=== PATIENT | female | born 1955 | race Caucasian/White ===

== ENCOUNTER 2020-09-24 19:26 | Inpatient (IN) | payer BC, MEDICARE, OTHER ==
[2020-09-24] MEDS: Sodium Chloride 0.9% 10 ML Syringe FLUSH PRN (19:50)
--- NOTE | 2020-09-24 19:53 | EDM.PDOC ---
ED HPI GENERAL MEDICAL PROBLEM - General Time Seen by Provider: 09/24/20 19:45 Source of Information: Reports: Patient History Limitations: Reports: No Limitations - History of Present Illness INITIAL COMMENTS - FREE TEXT/NARRATIVE: 65-year-old female with history of COPD who was recently on prednisone for COPD exacerbation and was improving until 2 days ago when she began to have increasing shortness of breath. She has a chronic cough that is really unchanged and she is producing thick mucus which is not much change than previous. Today her breathing seemed to be quite a bit worse and her O2 saturations have dropped to the 88% range. The patient is not on oxygen but does have an O2 sat monitor that she uses at home. She reports that she is usually 90-91% on room air home. She also reports that yesterday that she began to have pain in her right anterior and lateral chest that was a sharp pain that was worse with breathing and with movement. It went away yesterday but came back today and has progressively worsened today. She reports her pain is a 10/10. She feels somewhat better on oxygen and her O2 saturations were 87 to 88% on room air and are now 92-95% on 2 L/m via nasal cannula. She has had no fevers or chills. She has had generalized malaise. No sweats. No nausea or vomiting. She has been able to take liquids well. Not much of an appetite. No hemoptysis. No abdominal pain. No leg swelling. There are no other associated signs or symptoms. There are no other modifying factors. Onset: Other (2 days ago) Duration: Getting Worse Location: Reports: Chest (Right-sided chest) Quality: Reports: Sharp Severity: Severe Improves with: Reports: Rest Worsens with: Reports: Breathing, Other (Palpation), Movement Context: Reports: Other Associated Symptoms: Reports: Chest Pain, Cough, Loss of Appetite, Malaise, Shortness of Breath Treatments [employer]: Reports: Other (see below) (Usual medications.) R lateral chest/rib Pain Score (Numeric/FACES): 10 - Related Data Allergies Allergy/AdvReac Type Severity Reaction Status Date / Time No Known Allergies Allergy Verified 09/24/20 19:54 Home Meds: Home Meds Albuterol Sulfate [Albuterol Sulfate Hfa] 18 gm IH Q4H PRN 09/24/20 [History] Albuterol [Proventil Neb Soln] 2.5 mg .XX Q4H PRN 09/24/20 [History] Aspirin [Aspirin EC] 325 mg PO DAILY 09/24/20 [History] Fluticasone/Umeclidin/Vilanter [Trelegy Ellipta 100-62.5-25] 1 puff DAILY 09/24/20 [History] Multivitamin [Daily Multiple Vitamin] 1 each PO DAILY 09/24/20 [History] Simvastatin [Zocor] 80 mg PO BEDTIME 09/24/20 [History] Venlafaxine HCl [Venlafaxine ER] 150 mg DAILY 09/24/20 [History] amLODIPine Besylate [Norvasc] 10 mg PO DAILY 09/24/20 [History] Past Medical History Cardiovascular History: Reports: Hypertension Respiratory History: Reports: COPD Psychiatric History: Reports: Anxiety, Depression - Past Surgical History GI Surgical History: Reports: Appendectomy Female Surgical History: Reports: Section Social & Family History - Tobacco Use Tobacco Use Status *Q: Current Every Day Tobacco User Tobacco Use Comment: Smokes 1/2-3/4 of a pack per day. Long-standing smoker. - Alcohol Use Alcohol Use History: No - Living Situation & Occupation Occupation: Retired ED ROS GENERAL - Review of Systems Review Of Systems: See Below Constitutional: Reports: Malaise, Fatigue HEENT: Reports: No Symptoms Respiratory: Reports: Shortness of Breath, Wheezing, Pleuritic Chest Pain, Cough, Sputum Cardiovascular: Reports: Chest Pain, Dyspnea on Exertion Endocrine: Reports: No Symptoms GI/Abdominal: Reports: No Symptoms : Reports: No Symptoms Musculoskeletal: Reports: No Symptoms Skin: Reports: No Symptoms Neurological: Reports: No Symptoms Hematologic/Lymphatic: Reports: No Symptoms Immunologic: Reports: No Symptoms ED EXAM, GENERAL - Physical Exam Exam: See Below Exam Limited By: No Limitations General Appearance: Alert, WD/WN, Moderate Distress (Appears in acute pain. There is increased work of breathing.) Eye Exam: Bilateral Eye: EOMI, Normal Inspection Ears: Normal External Exam, Hearing Grossly Normal Ear Exam: Bilateral Ear: Auricle Normal Nose: Normal Inspection, Normal Mucosa, No Blood Throat/Mouth: Normal Inspection, Normal Lips, Normal Oropharynx, Normal Voice, No Airway Compromise Head: Atraumatic, Normocephalic Neck: Normal Inspection, Supple, Non-Tender, Full Range of Motion Respiratory/Chest: Respiratory Distress, Decreased Breath Sounds (Bilaterally. There is poor air movement.), Wheezing, Accessory Muscle Use, Other (Tender to palpation along her right her lateral lower rib) Cardiovascular: Normal Peripheral Pulses, No Edema, No Gallop, No Murmur, Tachycardia Peripheral Pulses: 2+: Radial (L), Radial (R) GI/Abdominal: Normal Bowel Sounds, Soft, Non-Tender, No Mass Back Exam: Full Range of Motion, Other (Kyphotic) Extremities: Normal Inspection, Normal Range of Motion, Non-Tender, No Pedal Edema, Normal Capillary Refill Neurological: Alert, Oriented, CN II-XII Intact, Normal Cognition, No Motor/Sensory Deficits Psychiatric: Normal Affect Skin Exam: Warm, Dry, Intact, Normal Color, No Rash #1 Interpretation EKG Date: 09/24/20 Time: 19:36 Rhythm: Other (Sinus tachycardia) Rate (Beats/Min): 106 [place]: Normal P-Wave: Enlarged (Biatrial enlargement) QRS: Normal ST-T: Other (Nonspecific ST-T changes) QT: Normal Comparison: NA - No Prior EKG Course - Vital Signs Last Recorded V/S: Last Vital Signs Temp 36.7 C 09/24/20 19:26 Pulse 107 H 09/24/20 20:30 Resp 24 H 09/24/20 20:30 BP 115/68 09/24/20 20:30 Pulse Ox 92 L 09/24/20 20:30 - Orders/Labs/Meds Orders: Active Orders 24 hr Category Date Time Status Admission Status [Patient Status] [ADT] Routine ADT 09/24/20 23:35 Active Cardiac Monitoring [RC] .As Directed Care 09/24/20 23:20 Ordered EKG Documentation Completion [RC] ASDIRECTED Care 09/24/20 19:47 Active EKG Documentation Completion [RC] ASDIRECTED Care 09/24/20 23:34 Active Height and Weight [RC] DAILY Care 09/24/20 23:26 Active Intake and Output [RC] QSHIFT Care 09/24/20 23:26 Active Oxygen Therapy Adult [Oxygen Therapy, ED] [RC] Care 09/24/20 19:30 Active ASDIRECTED Oxygen Therapy [RC] PRN Care 09/24/20 23:26 Active RT Aerosol Therapy [RC] ASDIRECTED Care 09/24/20 21:02 Active RT Aerosol Therapy [RC] ASDIRECTED Care 09/24/20 23:30 Active Up With Assistance [RC] ASDIRECTED Care 09/24/20 23:26 Active VTE/DVT Education [RC] Per Unit Routine Care 09/24/20 23:26 Active Vital Signs [RC] Q4H Care 09/24/20 23:26 Active Regular Diet [DIET] Diet 09/24/20 Dinner Active Ang Chest [CT] Stat Exams 09/24/20 21:03 Taken Chest 1V Frontal [CR] Stat Exams 09/24/20 19:46 Taken BASIC METABOLIC PANEL,BMP [CHEM] AM Lab 09/25/20 05:11 Ordered CBC WITH AUTO DIFF [HEME] AM Lab 09/25/20 05:11 Ordered CULTURE BLOOD [BC] Urgent Lab 09/24/20 19:40 Received CULTURE BLOOD [BC] Urgent Lab 09/24/20 20:30 Ordered TROPONIN I [CHEM] AM Lab 09/25/20 05:11 Ordered Acetaminophen [TylenoL] Med 09/24/20 23:26 Ordered 650 mg PO Q4H PRN Albuterol/Ipratropium [DuoNeb 3.0-0.5 MG/3 ML] Med 09/25/20 07:00 Ordered 3 ml NEB QIDRT Azithromycin [Zithromax] 500 mg Med 09/25/20 23:00 Ordered Sodium Chloride 0.9% [Normal Saline (AdvBag)] 250 ml IV Q24H Enoxaparin [Lovenox] Med 09/24/20 23:30 Ordered 30 mg SUBCUT Q24H HYDROmorphone [Dilaudid] Med 09/24/20 23:26 Ordered 0.5 mg IVPUSH Q2H PRN Ondansetron [Zofran] Med 09/24/20 23:26 Ordered 4 mg IV Q6H PRN Pantoprazole [ProTONIX IV] Med 09/24/20 23:30 Ordered 40 mg IVPUSH Q12H Sodium Chloride 0.9% [Normal Saline] 1,000 ml Med 09/24/20 20:30 Active IV ASDIRECTED Sodium Chloride 0.9% [Saline Flush] Med 09/24/20 19:46 Active 10 ml FLUSH ASDIRECTED PRN cefTRIAXone [Rocephin] Med 09/25/20 22:30 Ordered 1 gm IVPUSH Q24H methylPREDNISolone Sod Succ [Solu-MEDROL] Med 09/25/20 08:00 Ordered 40 mg IVPUSH Q12H Blood Culture x2 Reflex Set [OM.PC] Urgent Oth 09/24/20 20:29 Ordered Peripheral IV Insertion Adult [OM.PC] Routine Oth 09/24/20 19:46 Ordered Resuscitation Status Routine Resus Stat 09/24/20 23:26 Ordered EKG 12 Lead [EK] Routine Ther 09/25/20 08:00 Ordered EKG 12 Lead [EK] Routine Ther 09/24/20 19:46 Ordered Medication Orders Acetaminophen (Tylenol) 650 mg PO Q4H PRN PRN Reason: Pain (Mild 1-3)/fever Albuterol/Ipratropium (Duoneb 3.0-0.5 Mg/3 Ml) 3 ml NEB QIDRT BUSHRA Ceftriaxone Sodium (Rocephin) 1 gm IVPUSH Q24H [facility] Enoxaparin Sodium (Lovenox) 30 mg SUBCUT Q24H B[facility]RA Hydromorphone HCl (Dilaudid) 0.5 mg IVPUSH Q2H PRN PRN Reason: Pain (severe 7-10) Sodium Chloride (Normal Saline) 1,000 mls @ 75 mls/hr IV ASDIRECTED BUSHRA Last Admin: 09/24/20 20:30 Dose: 125 mls/hr Documented by: [email or web address] Azithromycin 500 mg/ Sodium (Chloride) 250 mls @ 250 mls/hr IV Q24H B[facility]RA Methylprednisolone Sodium Succinate (Solu-Medrol) 40 mg IVPUSH Q12H [facility] Ondansetron HCl (Zofran) 4 mg IV Q6H PRN PRN Reason: Nausea/Vomiting Pantoprazole Sodium (Protonix Iv) 40 mg IVPUSH Q12H [facility] Sodium Chloride (Saline Flush) 10 ml FLUSH ASDIRECTED PRN PRN Reason: Keep Vein Open Last Admin: 09/24/20 19:50 Dose: 10 ml Documented by: [email or web address] Labs: Laboratory Tests 09/24/20 09/24/20 09/24/20 Range/Units 19:40 19:40 19:40 WBC 29.8 H (3.0-10.3) x10-3/uL RBC 5.21 H (3.60-5.20) x10(6)uL Hgb 15.4 (11.4-15.5) g/dL Hct 48.2 (34.2-48.2) % MCV 92.5 (76.7-100.5) fL MCH 29.5 (23.9-33.9) pg MCHC 31.9 (31.9-34.8) g/dL RDW 13.8 (12.3-16.5) % Plt Count 476 (151-488) x10(3)uL MPV 7.8 (7.1-12.4) fL Add Manual Diff Yes Neutrophils % (Manual) 89 H (46-82) % Band Neutrophils % 3 (0-6) % Lymphocytes % (Manual) 6 L (13-37) % Monocytes % (Manual) 2 L (4-12) % PT 10.2 (9.0-11.1) sec INR 0.94 L (1.00-1.24) APTT 26.1 (24.4-33.2) SECONDS D-Dimer, Quantitative (0.0-0.59) mg/LFEU POC VBG pH (7.32-7.43) pH Units POC VBG pCO2 (41-51) mmHg POC VBG HCO3 (21-29) mmol/L VBG Base Excess (-2-3) mmol/L O2 Delivery Device Sodium 140 (135-145) mmol/L Potassium 4.0 (3.5-5.3) mmol/L Chloride 102 (100-110) mmol/L Carbon Dioxide 25 (21-32) mmol/L BUN 14 (7-18) mg/dL Creatinine 0.9 (0.55-1.02) mg/dL Est Cr Clr Drug Dosing 48.43 mL/min Estimated GFR (MDRD) > 60 (>60) BUN/Creatinine Ratio 15.6 (9-20) Glucose 165 H (80-116) mg/dL Lactic Acid (0.4-2.0) mmol/L Calcium 9.3 (8.6-10.2) mg/dL Total Bilirubin 0.4 (0.1-1.3) mg/dL AST 45 H (5-25) IU/L ALT 69 H (12-36) U/L Alkaline Phosphatase 190 H (56-112) IU/L Troponin I (4.0-60.3) pg/mL C-Reactive Protein (0.5-0.9) mg/dL NT-Pro-B Natriuret Pep (<=125) pg/mL Total Protein 7.2 (6.0-8.0) g/dL Albumin 3.0 L (3.2-4.6) g/dL Globulin 4.2 g/dL Albumin/Globulin Ratio 0.7 SARS-CoV-2 RNA (KIKE) (NEGATIVE) 09/24/20 09/24/20 09/24/20 Range/Units 19:40 19:40 19:40 WBC (3.0-10.3) x10-3/uL RBC (3.60-5.20) x10(6)uL Hgb (11.4-15.5) g/dL Hct (34.2-48.2) % MCV (76.7-100.5) fL MCH (23.9-33.9) pg MCHC (31.9-34.8) g/dL RDW (12.3-16.5) % Plt Count (151-488) x10(3)uL MPV (7.1-12.4) fL Add Manual Diff Neutrophils % (Manual) (46-82) % Band Neutrophils % (0-6) % Lymphocytes % (Manual) (13-37) % Monocytes % (Manual) (4-12) % PT (9.0-11.1) sec INR (1.00-1.24) APTT (24.4-33.2) SECONDS D-Dimer, Quantitative (0.0-0.59) mg/LFEU POC VBG pH 7.43 (7.32-7.43) pH Units POC VBG pCO2 39 L (41-51) mmHg POC VBG HCO3 26 (21-29) mmol/L VBG Base Excess 2 (-2-3) mmol/L O2 Delivery Device Nasal cannula Sodium (135-145) mmol/L Potassium (3.5-5.3) mmol/L Chloride (100-110) mmol/L Carbon Dioxide (21-32) mmol/L BUN (7-18) mg/dL Creatinine (0.55-1.02) mg/dL Est Cr Clr Drug Dosing mL/min Estimated GFR (MDRD) (>60) BUN/Creatinine Ratio (9-20) Glucose (80-116) mg/dL Lactic Acid (0.4-2.0) mmol/L Calcium (8.6-10.2) mg/dL Total Bilirubin (0.1-1.3) mg/dL AST (5-25) IU/L ALT (12-36) U/L Alkaline Phosphatase (56-112) IU/L Troponin I 5.3 (4.0-60.3) pg/mL C-Reactive Protein 17.1 H* (0.5-0.9) mg/dL NT-Pro-B Natriuret Pep 143 H (<=125) pg/mL Total Protein (6.0-8.0) g/dL Albumin (3.2-4.6) g/dL Globulin g/dL Albumin/Globulin Ratio SARS-CoV-2 RNA (KIKE) (NEGATIVE) 09/24/20 09/24/20 09/24/20 Range/Units 19:40 19:40 19:45 WBC (3.0-10.3) x10-3/uL RBC (3.60-5.20) x10(6)uL Hgb (11.4-15.5) g/dL Hct (34.2-48.2) % MCV (76.7-100.5) fL MCH (23.9-33.9) pg MCHC (31.9-34.8) g/dL RDW (12.3-16.5) % Plt Count (151-488) x10(3)uL MPV (7.1-12.4) fL Add Manual Diff Neutrophils % (Manual) (46-82) % Band Neutrophils % (0-6) % Lymphocytes % (Manual) (13-37) % Monocytes % (Manual) (4-12) % PT (9.0-11.1) sec INR (1.00-1.24) APTT (24.4-33.2) SECONDS D-Dimer, Quantitative 0.77 H (0.0-0.59) mg/LFEU POC VBG pH (7.32-7.43) pH Units POC VBG pCO2 (41-51) mmHg POC VBG HCO3 (21-29) mmol/L VBG Base Excess (-2-3) mmol/L O2 Delivery Device Sodium (135-145) mmol/L Potassium (3.5-5.3) mmol/L Chloride (100-110) mmol/L Carbon Dioxide (21-32) mmol/L BUN (7-18) mg/dL Creatinine (0.55-1.02) mg/dL Est Cr Clr Drug Dosing mL/min Estimated GFR (MDRD) (>60) BUN/Creatinine Ratio (9-20) Glucose (80-116) mg/dL Lactic Acid 1.7 (0.4-2.0) mmol/L Calcium (8.6-10.2) mg/dL Total Bilirubin (0.1-1.3) mg/dL AST (5-25) IU/L ALT (12-36) U/L Alkaline Phosphatase (56-112) IU/L Troponin I (4.0-60.3) pg/mL C-Reactive Protein (0.5-0.9) mg/dL NT-Pro-B Natriuret Pep (<=125) pg/mL Total Protein (6.0-8.0) g/dL Albumin (3.2-4.6) g/dL Globulin g/dL Albumin/Globulin Ratio SARS-CoV-2 RNA (KIKE) Negative (NEGATIVE) Meds: Medications Generic Name Dose Route Start Last Admin Trade Name Freq PRN Reason Stop Dose Admin Acetaminophen 650 mg 09/24/20 23:26 Tylenol PO Q4H PRN Pain (Mild 1-3)/fever Albuterol/Ipratropium 3 ml 09/25/20 07:00 Duoneb 3.0-0.5 Mg/3 Ml NEB QIDRT BUSHRA Ceftriaxone Sodium 1 gm 09/25/20 22:30 Rocephin IVPUSH Q24H BUSH[facility] Enoxaparin Sodium 30 mg 09/24/20 23:30 Lovenox SUBCUT Q24H B[facility]RA Hydromorphone HCl 0.5 mg 09/24/20 23:26 Dilaudid IVPUSH Q2H PRN Pain (severe 7-10) Sodium Chloride 1,000 mls @ 75 mls/hr 09/24/20 20:30 09/24/20 20:30 Normal Saline IV 125 mls/hr ASDIRECTED BUSHRA Administration Azithromycin 500 mg/ Sodium 250 mls @ 250 mls/hr 09/25/20 23:00 Chloride IV Q24H BUSHRA Methylprednisolone Sodium Succinate 40 mg 09/25/20 08:00 Solu-Medrol IVPUSH Q12H [facility] Ondansetron HCl 4 mg 09/24/20 23:26 Zofran IV Q6H PRN Nausea/Vomiting Pantoprazole Sodium 40 mg 09/24/20 23:30 Protonix Iv IVPUSH Q12H [facility] Sodium Chloride 10 ml 09/24/20 19:46 09/24/20 19:50 Saline Flush FLUSH 10 ml ASDIRECTED PRN Administration Keep Vein Open Discontinued Medications Generic Name Dose Route Start Last Admin Trade Name Freq PRN Reason Stop Dose Admin Albuterol/Ipratropium 3 ml 09/24/20 21:02 09/24/20 21:23 Duoneb 3.0-0.5 Mg/3 Ml NEB 09/24/20 21:03 3 ml ONETIME ONE Administration Ceftriaxone Sodium 1 gm 09/24/20 22:30 09/24/20 23:00 Rocephin IVPUSH 09/24/20 22:31 1 gm ONETIME ONE Administration Hydromorphone HCl 0.5 mg 09/24/20 20:17 09/24/20 20:29 Dilaudid IVPUSH 09/24/20 20:18 0.5 mg ONETIME ONE Administration Azithromycin 500 mg/ Sodium 250 mls @ 250 mls/hr 09/24/20 22:30 09/24/20 23:04 Chloride IV 09/24/20 23:29 250 mls/hr ONETIME ONE Administration Iopamidol 100 ml 09/24/20 21:17 09/24/20 22:08 Isovue-370 (76%) IV 09/24/20 21:18 75 ml . DIRECTED ONE Administration Methylprednisolone Sodium Succinate 125 mg 09/24/20 20:17 09/24/20 20:33 Solu-Medrol IVPUSH 09/24/20 20:18 125 mg ONETIME ONE Administration Ondansetron HCl 4 mg 09/24/20 20:17 09/24/20 20:27 Zofran IVPUSH 09/24/20 20:18 4 mg ONETIME ONE Administration - Radiology Interpretation Free Text/Narrative:: Portable chest x-ray showed bilateral lower lobe infiltrates with right being greater than left. CTA of chest showed evidence of pulmonary emboli but there were bilateral lower lobe infiltrates with right being greater than left. This was per the radiologist. - Re-Assessments/Exams Free Text/Narrative Re-Assessment/Exam: 09/24/20 20:55: The patient feels much better after the IV pain medication. Her Covid test was negative and she will be given a DuoNeb. She is still requiring supplemental oxygen at 2+ liters per minute via nasal cannula to keep her O2 saturations greater than 92%. A venous blood gas showed normal pH and normal PCO2. Her d-dimer is elevated. She will need a CTA of her chest to rule in or out PE. I did discuss with the patient that she will need admission for respiratory failure. I discussed the findings of the tests thus far and she would be agreeable to admission to our facility. The patient's EKG shows no acute injury pattern and her troponin was normal. I we will await the results of the CTA of her chest. We will continue close monitoring. 09/24/20 23:15: The CTA of her chest showed no evidence of pulmonary embolism There were bilateral pneumonias as were seen on the chest x-ray. She is requiring 2-1/2 L/m of oxygen still. I have ordered Rocephin 1 g IV and Zithromax 500 mg IV. Her breathing is much better after the DuoNeb. I discussed all these findings with the patient and will be admitted. This plan of care will require at least 2 midnight [address] stay. I will place admission orders. Care the patient will be transferred to Dr. Moreno at 0700 hrs. on 09/25/2020. Evaluation is agreeable with the plan for admission. I did discuss precautions CODE STATUS with the patient and she requests to be a FULL CODE. The patient is on telemetry and I also ordered a repeat troponin and a repeat EKG to be performed in the morning. Departure - Departure Time of Disposition: 23:30 Disposition: Admitted As Inpatient 65 Condition: Fair Clinical Impression: COPD exacerbation Respiratory failure with hypoxia Qualifiers: Chronicity: acute Qualified Code(s): J96.01 - Acute respiratory failure with hypoxia Bilateral pneumonia Qualifiers: Pneumonia type: due to unspecified organism Lung location: lower lobe of lung Qualified Code(s): J18.9 - Pneumonia, unspecified organism - Discharge Information Referrals: Ry Nava MD [Primary Care Provider] - Sepsis Event Note (ED) - Focused Exam Vital Signs: Vital Signs Temp Pulse Resp BP Pulse Ox Pulse Ox 09/24/20 20:30 107 H 24 H 115/68 92 L 09/24/20 20:00 108 H 24 H 139/95 H 92 L 09/24/20 19:48 104 H 26 H 124/78 93 L 09/24/20 19:30 88 L 09/24/20 19:26 36.7 C 122 H 28 H 153/74 H 88 L - My Orders Last 24 Hours: My Active Orders 09/24/20 Dinner Regular Diet [DIET] 09/24/20 19:30 Oxygen Therapy Adult [Oxygen Therapy, ED] [RC] ASDIRECTED 09/24/20 19:40 CULTURE BLOOD [BC] Urgent 09/24/20 19:46 Chest 1V Frontal [CR] Stat Sodium Chloride 0.9% [Saline Flush] 10 ml FLUSH ASDIRECTED PRN Peripheral IV Insertion Adult [OM.PC] Routine EKG 12 Lead [EK] Routine 09/24/20 19:47 EKG Documentation Completion [RC] ASDIRECTED 09/24/20 20:29 Blood Culture x2 Reflex Set [OM.PC] Urgent 09/24/20 20:30 CULTURE BLOOD [BC] Urgent Sodium Chloride 0.9% [Normal Saline] 1,000 ml IV ASDIRECTED 09/24/20 21:02 RT Aerosol Therapy [RC] ASDIRECTED 09/24/20 21:03 Ang Chest [CT] Stat 09/24/20 23:20 Cardiac Monitoring [RC] .As Directed 09/24/20 23:26 Height and Weight [RC] DAILY Intake and Output [RC] QSHIFT Oxygen Therapy [RC] PRN Up With Assistance [RC] ASDIRECTED VTE/DVT Education [RC] Per Unit Routine Vital Signs [RC] Q4H Acetaminophen [TylenoL] 650 mg PO Q4H PRN HYDROmorphone [Dilaudid] 0.5 mg IVPUSH Q2H PRN Ondansetron [Zofran] 4 mg IV Q6H PRN Resuscitation Status Routine 09/24/20 23:30 RT Aerosol Therapy [RC] ASDIRECTED Enoxaparin [Lovenox] 30 mg SUBCUT Q24H Pantoprazole [ProTONIX IV] 40 mg IVPUSH Q12H 09/24/20 23:34 EKG Documentation Completion [RC] ASDIRECTED 09/24/20 23:35 Admission Status [Patient Status] [ADT] Routine 09/25/20 05:11 BASIC METABOLIC PANEL,BMP [CHEM] AM CBC WITH AUTO DIFF [HEME] AM TROPONIN I [CHEM] AM 09/25/20 07:00 Albuterol/Ipratropium [DuoNeb 3.0-0.5 MG/3 ML] 3 ml NEB QIDRT 09/25/20 08:00 methylPREDNISolone Sod Succ [Solu-MEDROL] 40 mg IVPUSH Q12H EKG 12 Lead [EK] Routine 09/25/20 22:30 cefTRIAXone [Rocephin] 1 gm IVPUSH Q24H 09/25/20 23:00 Azithromycin [Zithromax] 500 mg Sodium Chloride 0.9% [Normal Saline (AdvBag)] 250 ml IV Q24H - Assessment/Plan Last 24 Hours: My Active Orders 09/24/20 Dinner Regular Diet [DIET] 09/24/20 19:30 Oxygen Therapy Adult [Oxygen Therapy, ED] [RC] ASDIRECTED 09/24/20 19:40 CULTURE BLOOD [BC] Urgent 09/24/20 19:46 Chest 1V Frontal [CR] Stat Sodium Chloride 0.9% [Saline Flush] 10 ml FLUSH ASDIRECTED PRN Peripheral IV Insertion Adult [OM.PC] Routine EKG 12 Lead [EK] Routine 09/24/20 19:47 EKG Documentation Completion [RC] ASDIRECTED 09/24/20 20:29 Blood Culture x2 Reflex Set [OM.PC] Urgent 09/24/20 20:30 CULTURE BLOOD [BC] Urgent Sodium Chloride 0.9% [Normal Saline] 1,000 ml IV ASDIRECTED 09/24/20 21:02 RT Aerosol Therapy [RC] ASDIRECTED 09/24/20 21:03 Ang Chest [CT] Stat 09/24/20 23:20 Cardiac Monitoring [RC] .As Directed 09/24/20 23:26 Height and Weight [RC] DAILY Intake and Output [RC] QSHIFT Oxygen Therapy [RC] PRN Up With Assistance [RC] ASDIRECTED VTE/DVT Education [RC] Per Unit Routine Vital Signs [RC] Q4H Acetaminophen [TylenoL] 650 mg PO Q4H PRN HYDROmorphone [Dilaudid] 0.5 mg IVPUSH Q2H PRN Ondansetron [Zofran] 4 mg IV Q6H PRN Resuscitation Status Routine 09/24/20 23:30 RT Aerosol Therapy [RC] ASDIRECTED Enoxaparin [Lovenox] 30 mg SUBCUT Q24H Pantoprazole [ProTONIX IV] 40 mg IVPUSH Q12H 09/24/20 23:34 EKG Documentation Completion [RC] ASDIRECTED 09/24/20 23:35 Admission Status [Patient Status] [ADT] Routine 09/25/20 05:11 BASIC METABOLIC PANEL,BMP [CHEM] AM CBC WITH AUTO DIFF [HEME] AM TROPONIN I [CHEM] AM 09/25/20 07:00 Albuterol/Ipratropium [DuoNeb 3.0-0.5 MG/3 ML] 3 ml NEB QIDRT 09/25/20 08:00 methylPREDNISolone Sod Succ [Solu-MEDROL] 40 mg IVPUSH Q12H EKG 12 Lead [EK] Routine 09/25/20 22:30 cefTRIAXone [Rocephin] 1 gm IVPUSH Q24H 09/25/20 23:00 Azithromycin [Zithromax] 500 mg Sodium Chloride 0.9% [Normal Saline (AdvBag)] 250 ml IV Q24H
[2020-09-24 20:16] LABS: BASE EXCESS VENOUS,POC 2 mmol/L (-2-3); HCO3 VENOUS,POC 26 mmol/L (21-29); PCO2 VENOUS,POC 39 mmHg (41-51); PH VENOUS,POC 7.43 pH Units (7.32-7.43)
[2020-09-24] MEDS ORDERED: HYDROmorphone 2 MG/ML SDV IVPUSH ONE (20:17)
[2020-09-24] MEDS ORDERED: Ondansetron 4 MG/2 ML SDV IVPUSH ONE (20:17)
[2020-09-24] MEDS ORDERED: methylPREDNISolone Sodium Succinate 125 MG/2 ML SDV IVPUSH ONE (20:17)
[2020-09-24] MEDS ORDERED: Sodium Chloride 0.9% 1,000 ML IV SCH (20:30)
[2020-09-24] MEDS ORDERED: Albuterol/Ipratropium 3.0-0.5 MG/3 ML Neb Soln NEB ONE (21:02)
[2020-09-24] MEDS ORDERED: Iopamidol 755 Mg/ML 100 ML Bottle IV ONE (21:17)
[2020-09-24] MEDS ORDERED: Azithromycin 500 MG in Sodium Chloride 0.9% 250 ML IV ONE (22:30)
[2020-09-24] MEDS ORDERED: cefTRIAXone 1 GM Vial IVPUSH ONE (22:30)
[2020-09-24] MEDS ORDERED: Acetaminophen 325 MG Tab PO PRN (23:26)
[2020-09-24] MEDS ORDERED: Ondansetron 4 MG/2 ML SDV IV PRN (23:26)
[2020-09-24] MEDS ORDERED: Enoxaparin 40 MG/0.4 ML Syringe SUBCUT ONE (23:30)
[2020-09-25] MEDS: Pantoprazole 40 MG Vial IVPUSH SCH ×3 (00:04→23:20)
[2020-09-25] MEDS: HYDROmorphone 2 MG/ML SDV IVPUSH PRN ×2 (00:34→04:45)
[2020-09-25] MEDS: Albuterol/Ipratropium 3.0-0.5 MG/3 ML Neb Soln NEB SCH ×4 (06:45→21:40)
[2020-09-25] MEDS ORDERED: hydrOXYzine HCl 25 MG Tab PO PRN (08:38)
[2020-09-25] MEDS ORDERED: traMADol 50 MG Tab PO PRN (08:40)
[2020-09-25] MEDS: methylPREDNISolone Sodium Succinate 40 MG/1 ML SDV IVPUSH SCH ×2 (08:43→20:25)
--- NOTE | 2020-09-25 08:49 | PCM.HP.2 ---
H&P History of Present Illness - General Date of Service: 09/25/20 Admit Problem/Dx: Admission Diagnosis/Problem Admission Diagnosis/Problem Respiratory failure with hypoxia Source of Information: Patient, EMS Notes Reviewed History Limitations: Reports: No Limitations - History of Present Illness Initial Comments - Free Text/Narative: This is a 65-year-old female patient has had several weeks of wheezing and shortness of breath. She has a history of COPD and she is a smoker. She's been on a tapering dose of steroids that she says is been going on for 3 weeks. She says it has helped. 2 days ago she started having right rib pain and more shortness of breath. She called the provider is taking care of her and she was instructed to go to the hospital. She did not go immediately because her cat was having surgery and she showed up yesterday. She was evaluated by the ER doc with a CT scan that showed bilateral pneumonia. Her coronavirus 19 test was negative. Patient states she has positive phlegm but it's not any different than normal. She says was a little bit colored with green and doesn't worry her. She denies fevers, chills, body aches. She does have fatigue. She is not able to walk as far she normally does per she denies any chest pain. The pain in her ribs is a right anterior axillary line below the breast. R lateral chest/rib Pain Score (Numeric/FACES): 6 - Related Data Allergies/Adverse Reactions: Allergies Allergy/AdvReac Type Severity Reaction Status Date / Time No Known Allergies Allergy Verified 09/24/20 19:54 Home Medications: Home Meds Albuterol Sulfate [Albuterol Sulfate Hfa] 18 gm IH Q4H PRN 09/24/20 [History] Albuterol [Proventil Neb Soln] 2.5 mg .XX Q4H PRN 09/24/20 [History] Aspirin [Aspirin EC] 325 mg PO DAILY 09/24/20 [History] Fluticasone/Umeclidin/Vilanter [Trelegy Ellipta 100-62.5-25] 1 puff DAILY 09/24/20 [History] Multivitamin [Daily Multiple Vitamin] 1 each PO DAILY 09/24/20 [History] Simvastatin [Zocor] 80 mg PO BEDTIME 09/24/20 [History] Venlafaxine HCl [Venlafaxine ER] 150 mg DAILY 09/24/20 [History] amLODIPine Besylate [Norvasc] 10 mg PO DAILY 09/24/20 [History] Past Medical History Cardiovascular History: Reports: High Cholesterol, Hypertension Respiratory History: Reports: COPD Gastrointestinal History: Reports: GERD Genitourinary History: Reports: None QUALITY ASSURANCE NURSE History: Reports: Other OB/BYN History: Musculoskeletal History: Reports: Arthritis, Fracture Other Musculoskeletal History: hx fx L foot Psychiatric History: Reports: Anxiety, Depression Oncologic (Cancer) History: Reports: Squamous Cell Carcinoma - Infectious Disease History Infectious Disease History: Reports: Chicken Pox, Measles, Mumps, Shingles - Past Surgical History Head Surgeries/Procedures: Reports: None HEENT Surgical History: Reports: Cataract Surgery Other HEENT Surgeries/Procedures: bilat cataract surg GI Surgical History: Reports: Appendectomy Female Surgical History: Reports: Section Other Female Surgeries/Procedures: CS x 1 Musculoskeletal Surgical History: Reports: None Oncologic Surgical History: Reports: Other (See Below) Other Oncologic Surgeries/Procedures: Skin CA removed from legs & hands Social & Family History - Family History Other Respiratory Family Hisory: Dad had asbestosis and mesothelioma. He had a history of working in a [employer] and he was a crm marketing specialist. - Tobacco Use Tobacco Use Status *Q: Current Every Day Tobacco User Years of Tobacco use: 50 Packs/Tins Daily: 0.5 Used Tobacco, but Quit: No Tobacco Use Comment: Smokes 1/2-3/4 of a pack per day. Long-standing smoker. Second Hand Smoke Exposure: Yes - Caffeine Use Caffeine Use: Reports: Soda Other Caffeine Use: Mountain Dew - Recreational Drug Use Recreational Drug Use: No - Living Situation & Occupation Occupation: Retired H&P Review of Systems - Review of Systems: Review Of Systems: See Below General: Reports: Weakness HEENT: Reports: No Symptoms Pulmonary: Reports: Shortness of Breath, Wheezing, Pleuritic Chest Pain, Cough, Sputum. Denies: Hemoptysis Cardiovascular: Reports: No Symptoms Gastrointestinal: Reports: No Symptoms Genitourinary: Reports: No Symptoms Musculoskeletal: Reports: No Symptoms Skin: Reports: No Symptoms Psychiatric: Reports: Other (She has history of anxiety depression per she's finding she's having more anxiety attacks recently. She's been on some Xanax which does help. Doctors only given her a few at a time.) Neurological: Reports: No Symptoms Hematologic/Lymphatic: Reports: No Symptoms Immunologic: Reports: No Symptoms Exam - Exam Exam: See Below - Vital Signs Vital Signs: Last Vital Signs Temp 97.8 F 09/25/20 04:57 Pulse 88 09/25/20 04:57 Resp 24 H 09/25/20 04:57 BP 135/72 09/25/20 04:57 Pulse Ox 91 L 09/25/20 04:57 Weight: 111 lb - Exam Quality Assessment: Supplemental Oxygen General: Alert, Oriented, Cooperative HEENT: Hearing Intact, Posterior Pharynx Clear, TMs Clear. No: Rhinitis Neck: Supple, Trachea Midline Lungs: Decreased Breath Sounds (So diminished that I'm not able to hear anything at this time. Not moving a lot of air. She has no signs of respiratory failure at this time.). No: Crackles, Rales, Rhonchi, Rub Cardiovascular: Regular Rate, Regular Rhythm. No: Systolic Murmur GI/Abdominal Exam: Normal Bowel Sounds, Soft, Non-Tender, No Organomegaly, No Distention Back Exam: Normal Inspection Extremities: Normal Inspection, No Pedal Edema Skin: Warm, Dry, Intact Neurological: Normal Gait, Normal Speech, Normal Tone Neuro Extensive - Mental Status: Alert, Oriented x3, Normal Mood/Affect, Normal Cognition Neuro Extensive - Motor, Sensory, Reflexes: Normal Gait Psychiatric: Alert, Normal Affect, Normal Mood - Patient Data Lab Results Last 24 hrs: Laboratory Results - last 24 hr 09/24/20 09/24/20 09/24/20 Range/Units 19:40 19:40 19:40 WBC 29.8 H (3.0-10.3) x10-3/uL RBC 5.21 H (3.60-5.20) x10(6)uL Hgb 15.4 (11.4-15.5) g/dL Hct 48.2 (34.2-48.2) % MCV 92.5 (76.7-100.5) fL MCH 29.5 (23.9-33.9) pg MCHC 31.9 (31.9-34.8) g/dL RDW 13.8 (12.3-16.5) % Plt Count 476 (151-488) x10(3)uL MPV 7.8 (7.1-12.4) fL Add Manual Diff Yes Neutrophils % (Manual) 89 H (46-82) % Band Neutrophils % 3 (0-6) % Lymphocytes % (Manual) 6 L (13-37) % Monocytes % (Manual) 2 L (4-12) % Eosinophils % (Manual) (0-5) % PT 10.2 (9.0-11.1) sec INR 0.94 L (1.00-1.24) APTT 26.1 (24.4-33.2) SECONDS D-Dimer, Quantitative (0.0-0.59) mg/LFEU POC VBG pH (7.32-7.43) pH Units POC VBG pCO2 (41-51) mmHg POC VBG HCO3 (21-29) mmol/L VBG Base Excess (-2-3) mmol/L O2 Delivery Device Sodium 140 (135-145) mmol/L Potassium 4.0 (3.5-5.3) mmol/L Chloride 102 (100-110) mmol/L Carbon Dioxide 25 (21-32) mmol/L BUN 14 (7-18) mg/dL Creatinine 0.9 (0.55-1.02) mg/dL Est Cr Clr Drug Dosing 48.43 mL/min Estimated GFR (MDRD) > 60 (>60) BUN/Creatinine Ratio 15.6 (9-20) Glucose 165 H (80-116) mg/dL Lactic Acid (0.4-2.0) mmol/L Calcium 9.3 (8.6-10.2) mg/dL Total Bilirubin 0.4 (0.1-1.3) mg/dL AST 45 H (5-25) IU/L ALT 69 H (12-36) U/L Alkaline Phosphatase 190 H (56-112) IU/L Troponin I (4.0-60.3) pg/mL C-Reactive Protein (0.5-0.9) mg/dL NT-Pro-B Natriuret Pep (<=125) pg/mL Total Protein 7.2 (6.0-8.0) g/dL Albumin 3.0 L (3.2-4.6) g/dL Globulin 4.2 g/dL Albumin/Globulin Ratio 0.7 SARS-CoV-2 RNA ([facility]) (NEGATIVE) 12/31/20 12/31/20 12/31/20 Range/Units 19:40 19:40 19:40 WBC (3.0-10.3) x10-3/uL RBC (3.60-5.20) x10(6)uL Hgb (11.4-15.5) g/dL Hct (34.2-48.2) % MCV (76.7-100.5) fL MCH (23.9-33.9) pg MCHC (31.9-34.8) g/dL RDW (12.3-16.5) % Plt Count (151-488) x10(3)uL MPV (7.1-12.4) fL Add Manual Diff Neutrophils % (Manual) (46-82) % Band Neutrophils % (0-6) % Lymphocytes % (Manual) (13-37) % Monocytes % (Manual) (4-12) % Eosinophils % (Manual) (0-5) % PT (9.0-11.1) sec INR (1.00-1.24) APTT (24.4-33.2) SECONDS D-Dimer, Quantitative (0.0-0.59) mg/LFEU POC VBG pH 7.43 (7.32-7.43) pH Units POC VBG pCO2 39 L (41-51) mmHg POC VBG HCO3 26 (21-29) mmol/L VBG Base Excess 2 (-2-3) mmol/L O2 Delivery Device Nasal cannula Sodium (135-145) mmol/L Potassium (3.5-5.3) mmol/L Chloride (100-110) mmol/L Carbon Dioxide (21-32) mmol/L BUN (7-18) mg/dL Creatinine (0.55-1.02) mg/dL Est Cr Clr Drug Dosing mL/min Estimated GFR (MDRD) (>60) BUN/Creatinine Ratio (9-20) Glucose (80-116) mg/dL Lactic Acid (0.4-2.0) mmol/L Calcium (8.6-10.2) mg/dL Total Bilirubin (0.1-1.3) mg/dL AST (5-25) IU/L ALT (12-36) U/L Alkaline Phosphatase (56-112) IU/L Troponin I 5.3 (4.0-60.3) pg/mL C-Reactive Protein 17.1 H* (0.5-0.9) mg/dL NT-Pro-B Natriuret Pep 143 H (<=125) pg/mL Total Protein (6.0-8.0) g/dL Albumin (3.2-4.6) g/dL Globulin g/dL Albumin/Globulin Ratio SARS-CoV-2 RNA ([facility]) (NEGATIVE) 09/24/20 09/24/20 09/24/20 Range/Units 19:40 19:40 19:45 WBC (3.0-10.3) x10-3/uL RBC (3.60-5.20) x10(6)uL Hgb (11.4-15.5) g/dL Hct (34.2-48.2) % MCV (76.7-100.5) fL MCH (23.9-33.9) pg MCHC (31.9-34.8) g/dL RDW (12.3-16.5) % Plt Count (151-488) x10(3)uL MPV (7.1-12.4) fL Add Manual Diff Neutrophils % (Manual) (46-82) % Band Neutrophils % (0-6) % Lymphocytes % (Manual) (13-37) % Monocytes % (Manual) (4-12) % Eosinophils % (Manual) (0-5) % PT (9.0-11.1) sec INR (1.00-1.24) APTT (24.4-33.2) SECONDS D-Dimer, Quantitative 0.77 H (0.0-0.59) mg/LFEU POC VBG pH (7.32-7.43) pH Units POC VBG pCO2 (41-51) mmHg POC VBG HCO3 (21-29) mmol/L VBG Base Excess (-2-3) mmol/L O2 Delivery Device Sodium (135-145) mmol/L Potassium (3.5-5.3) mmol/L Chloride (100-110) mmol/L Carbon Dioxide (21-32) mmol/L BUN (7-18) mg/dL Creatinine (0.55-1.02) mg/dL Est Cr Clr Drug Dosing mL/min Estimated GFR (MDRD) (>60) BUN/Creatinine Ratio (9-20) Glucose (80-116) mg/dL Lactic Acid 1.7 (0.4-2.0) mmol/L Calcium (8.6-10.2) mg/dL Total Bilirubin (0.1-1.3) mg/dL AST (5-25) IU/L ALT (12-36) U/L Alkaline Phosphatase (56-112) IU/L Troponin I (4.0-60.3) pg/mL C-Reactive Protein (0.5-0.9) mg/dL NT-Pro-B Natriuret Pep (<=125) pg/mL Total Protein (6.0-8.0) g/dL Albumin (3.2-4.6) g/dL Globulin g/dL Albumin/Globulin Ratio SARS-CoV-2 RNA ([facility]) Negative (NEGATIVE) 09/25/20 09/25/20 09/25/20 Range/Units 06:30 06:30 06:30 WBC 22.7 H (3.0-10.3) x10-3/uL RBC 4.66 (3.60-5.20) x10(6)uL Hgb 13.8 (11.4-15.5) g/dL Hct 43.5 (34.2-48.2) % MCV 93.4 (76.7-100.5) fL MCH 29.6 (23.9-33.9) pg MCHC 31.7 L (31.9-34.8) g/dL RDW 13.8 (12.3-16.5) % Plt Count 438 (151-488) x10(3)uL MPV 8.2 (7.1-12.4) fL Add Manual Diff Yes Neutrophils % (Manual) 85 H (46-82) % Band Neutrophils % 4 (0-6) % Lymphocytes % (Manual) 8 L (13-37) % Monocytes % (Manual) 2 L (4-12) % Eosinophils % (Manual) 1 (0-5) % PT (9.0-11.1) sec INR (1.00-1.24) APTT (24.4-33.2) SECONDS D-Dimer, Quantitative (0.0-0.59) mg/LFEU POC VBG pH (7.32-7.43) pH Units POC VBG pCO2 (41-51) mmHg POC VBG HCO3 (21-29) mmol/L VBG Base Excess (-2-3) mmol/L O2 Delivery Device Sodium 143 (135-145) mmol/L Potassium 4.7 (3.5-5.3) mmol/L Chloride 106 (100-110) mmol/L Carbon Dioxide 26 (21-32) mmol/L BUN 19 H (7-18) mg/dL Creatinine 0.9 (0.55-1.02) mg/dL Est Cr Clr Drug Dosing 48.87 mL/min Estimated GFR (MDRD) > 60 (>60) BUN/Creatinine Ratio 21.1 H (9-20) Glucose 113 (80-116) mg/dL Lactic Acid (0.4-2.0) mmol/L Calcium 9.2 (8.6-10.2) mg/dL Total Bilirubin (0.1-1.3) mg/dL AST (5-25) IU/L ALT (12-36) U/L Alkaline Phosphatase (56-112) IU/L Troponin I < 4.0 L (4.0-60.3) pg/mL C-Reactive Protein (0.5-0.9) mg/dL NT-Pro-B Natriuret Pep (<=125) pg/mL Total Protein (6.0-8.0) g/dL Albumin (3.2-4.6) g/dL Globulin g/dL Albumin/Globulin Ratio SARS-CoV-2 RNA ([facility]) (NEGATIVE) Result Diagrams: 09/25/20 06:30 09/25/20 06:30 #1 Interpretation EKG Date: 09/25/20 Rhythm: NSR Sepsis Event Note - Evaluation Sepsis Screening Result: Sepsis Risk - Focused Exam Vital Signs: Vital Signs Temp Pulse Resp BP Pulse Ox Pulse Ox 09/25/20 04:57 97.8 F 88 24 H 135/72 91 L 09/25/20 00:30 97.9 F 94 24 H 129/85 93 L 93 L 09/24/20 23:58 97.7 F 88 22 H 93/78 92 L 09/24/20 23:43 88 L 09/24/20 22:43 93 22 H 121/58 L 2 L 09/24/20 21:30 98 24 H 145/75 H 91 L 09/24/20 21:00 95 24 H 129/72 91 L - Problem List (1) Panic attack SNOMED Code(s): 857765958 ICD Code: F41.0 - PANIC DISORDER [EPISODIC PAROXYSMAL ANXIETY] Status: Acute Current Visit: Yes (2) Depression with anxiety SNOMED Code(s): 182326161 ICD Code: F41.8 - OTHER SPECIFIED ANXIETY DISORDERS Status: Acute Current Visit: Yes (3) Bilateral pneumonia SNOMED Code(s): 308182887 ICD Code: J18.9 - PNEUMONIA, UNSPECIFIED ORGANISM Status: Acute Current Visit: Yes Qualifiers: Pneumonia type: due to unspecified organism Lung location: lower lobe of lung Qualified Code(s): J18.9 - Pneumonia, unspecified organism (4) COPD exacerbation SNOMED Code(s): 294072554 ICD Code: J44.1 - CHRONIC OBSTRUCTIVE PULMONARY DISEASE W (ACUTE) EXACERBATION Status: Acute Current Visit: Yes (5) Respiratory failure with hypoxia SNOMED Code(s): 56302777050269998 ICD Code: J96.91 - RESPIRATORY FAILURE, UNSPECIFIED WITH HYPOXIA Status: Acute Current Visit: Yes Qualifiers: Chronicity: acute Qualified Code(s): J96.01 - Acute respiratory failure with hypoxia (6) Palliative care status SNOMED Code(s): 049526250 ICD Code: Z51.5 - ENCOUNTER FOR PALLIATIVE CARE Status: Acute Current Visit: Yes Problem List Initiated/Reviewed/Updated: Yes Orders Last 24hrs: Active Orders 24 hr Category Date Time Status Admission Status [Patient Status] [ADT] Routine ADT 09/24/20 23:35 Active EKG Documentation Completion [RC] 06 Care 09/24/20 23:34 Active Height and Weight [RC] 06 Care 09/24/20 23:26 Active Intake and Output [RC] 06,14,22 Care 09/24/20 23:26 Active Oxygen Therapy [RC] PRN Care 09/24/20 23:26 Active RT Aerosol Therapy [RC] ASDIRECTED Care 09/24/20 21:02 Active RT Aerosol Therapy [RC] ASDIRECTED Care 09/24/20 23:30 Active Up With Assistance [RC] ASDIRECTED Care 09/24/20 23:26 Active Vital Signs [RC] 08,12,16,20,00,04 Care 09/24/20 23:26 Active Regular Diet [DIET] Diet 09/24/20 Dinner Active Ang Chest [CT] Stat Exams 09/24/20 21:03 Taken Chest 1V Frontal [CR] Stat Exams 09/24/20 19:46 Taken CULTURE BLOOD [BC] Urgent Lab 09/24/20 19:40 Received CULTURE BLOOD [BC] Urgent Lab 09/24/20 20:30 Ordered Acetaminophen [TylenoL] Med 09/24/20 23:26 Active 650 mg PO Q4H PRN Albuterol/Ipratropium [DuoNeb 3.0-0.5 MG/3 ML] Med 09/25/20 07:00 Active 3 ml NEB QIDRT Azithromycin [Zithromax] 500 mg Med 09/25/20 23:00 Active Sodium Chloride 0.9% [Normal Saline (AdvBag)] 250 ml IV Q24H Enoxaparin [Lovenox] Med 09/25/20 21:00 Active 40 mg SUBCUT Q24H Fluticasone/Umeclidin/Vilanter [Trelegy Ellipta 100-62. Med 09/25/20 09:00 Ordered 5-25] 1 puff INH DAILY Multivitamin [Daily Multiple Vitamin] Med 09/25/20 09:00 Ordered 1 each PO DAILY Naproxen [Naprosyn] Med 09/25/20 08:45 Ordered 500 mg PO Q12HR Pantoprazole [ProTONIX IV] Med 09/24/20 23:30 Active 40 mg IVPUSH Q12H Simvastatin [Zocor] Med 09/25/20 21:00 Ordered 80 mg PO BEDTIME Sodium Chloride 0.9% [Saline Flush] Med 09/24/20 19:46 Active 10 ml FLUSH ASDIRECTED PRN Venlafaxine [Effexor XR] Med 09/25/20 09:00 Ordered 150 mg PO DAILY amLODIPine [Norvasc] Med 09/25/20 09:00 Ordered 10 mg PO DAILY cefTRIAXone [Rocephin] Med 09/25/20 22:30 Active 1 gm IVPUSH Q24H hydrOXYzine HCL [Atarax] Med 09/25/20 08:38 Ordered 25 mg PO Q6H PRN methylPREDNISolone Sod Succ [Solu-MEDROL] Med 09/25/20 08:00 Active 40 mg IVPUSH Q12H traMADol [Ultram] Med 09/25/20 08:40 Ordered 50 mg PO Q6H PRN Blood Culture x2 Reflex Set [OM.PC] Urgent Oth 09/24/20 20:29 Ordered Convert IV to Saline Lock [OM.PC] Routine Oth 09/25/20 08:38 Ordered Peripheral IV Insertion Adult [OM.PC] Routine Oth 09/24/20 19:46 Ordered Resuscitation Status Routine Resus Stat 09/24/20 23:26 Ordered EKG 12 Lead [EK] Routine Ther 09/25/20 08:00 Ordered EKG 12 Lead [EK] Routine Ther 09/24/20 19:46 Ordered Medication Orders Acetaminophen (Tylenol) 650 mg PO Q4H PRN PRN Reason: Pain (Mild 1-3)/fever Albuterol/Ipratropium (Duoneb 3.0-0.5 Mg/3 Ml) 3 ml NEB QIDRT [facility] Last Admin: 09/25/20 06:45 Dose: 3 ml Documented by: JUDY Ceftriaxone Sodium (Rocephin) 1 gm IVPUSH Q24H [facility] Enoxaparin Sodium (Lovenox) 40 mg SUBCUT Q24H [facility] Hydroxyzine HCl (Atarax) 25 mg PO Q6H PRN PRN Reason: Anxiety Azithromycin 500 mg/ Sodium (Chloride) 250 mls @ 250 mls/hr IV Q24H [facility] Methylprednisolone Sodium Succinate (Solu-Medrol) 40 mg IVPUSH Q12H [facility] Last Admin: 09/25/20 08:43 Dose: 40 mg Documented by: NUPUR Naproxen (Naprosyn) 500 mg PO Q12HR [facility] Pantoprazole Sodium (Protonix Iv) 40 mg IVPUSH Q12H [facility] Last Admin: 09/25/20 00:04 Dose: 40 mg Documented by: VENKATESH Sodium Chloride (Saline Flush) 10 ml FLUSH ASDIRECTED PRN PRN Reason: Keep Vein Open Last Admin: 09/24/20 19:50 Dose: 10 ml Documented by: VENKATESH Tramadol HCl (Ultram) 50 mg PO Q6H PRN PRN Reason: Pain Assessment/Plan Comment:: 1. Admit to inpatient. 2. Patient requests to be a full code. 3. Diet is regular 4. Labs CBC and chem panel. Covid 19 test negative 5. IV steroids 6. Rocephin and Zithromax IV 7. For VTE prophylaxis Lovenox injections 8. Up ad rickie. 9. DC telemetry and IV fluids. 10. Saline lock IV 11. O2 nasal cannula to keep saturations between 90 and 92% 12. Discussed smoking cessation with the patient. I offered a patch and she defers the patch. She is considering quitting smoking. She states she had this many times. 13. Reviewed her home med list and renewed appropriate medications. 14. Naprosyn 500 mg twice a day for pruritus. Tramadol when necessary for breakthrough pain. Discontinue Dilaudid and Zofran. 15. Hydroxyzine 25 mg every 6 hours when necessary for panic attacks. If this doesn't work I will consider switching to Xanax urine. - Mortality Measure Prognosis:: Good
[2020-09-25] MEDS: Naproxen 500 MG Tab PO SCH ×2 (10:06→21:40)
[2020-09-25] MEDS: amLODIPine 10 MG Tab PO SCH (10:06)
[2020-09-25] MEDS: Multivitamin Tab PO SCH (10:06)
[2020-09-25] MEDS: Venlafaxine 150 MG Cap.ER PO SCH (11:11)
[2020-09-25] MEDS: TRELEGY ELLIPTA INH SCH (15:02)
[2020-09-25] MEDS: Sodium Chloride 0.9% 10 ML Syringe FLUSH PRN ×2 (20:28→23:21)
[2020-09-25] MEDS ORDERED: Simvastatin 40 MG Tab PO SCH (21:00)
[2020-09-25] MEDS ORDERED: Enoxaparin 40 MG/0.4 ML Syringe SUBCUT SCH (21:00)
[2020-09-25] MEDS ORDERED: cefTRIAXone 1 GM Vial IVPUSH SCH (22:30)
[2020-09-25] MEDS ORDERED: Azithromycin 500 MG in Sodium Chloride 0.9% 250 ML IV SCH (23:00)
[2020-09-26] MEDS: Albuterol/Ipratropium 3.0-0.5 MG/3 ML Neb Soln NEB SCH ×2 (06:30→10:32)
[2020-09-26] MEDS: amLODIPine 10 MG Tab PO SCH (08:06)
[2020-09-26] MEDS: methylPREDNISolone Sodium Succinate 40 MG/1 ML SDV IVPUSH SCH (08:06)
[2020-09-26] MEDS: Naproxen 500 MG Tab PO SCH (08:07)
[2020-09-26] MEDS: Multivitamin Tab PO SCH (08:07)
[2020-09-26] MEDS: Sodium Chloride 0.9% 10 ML Syringe FLUSH PRN ×2 (08:07→10:36)
[2020-09-26] MEDS: TRELEGY ELLIPTA INH SCH (08:13)
--- NOTE | 2020-09-26 08:33 | PCM.PN ---
- General Info Date of Service: 09/26/20 Admission Dx/Problem (Free Text): This a 65-year-old female patient with severe COPD and pneumonia. Patient feels much better today. She says when she walks down the tanner she is a little short of breath. She had a little bit of her normal a.m. cough and the sputum was clear. She denies fevers, chills, wheezing, chest pain. Her right pleuritic chest pain is much improved on Naprosyn. She has not had to use any hydroxyzine for panic attacks. She wants to go home. She states she likes the DuoNeb is better than her albuterol nebulizer because she is so jittery. She would like to try that instead. - Patient Data Vitals - Most Recent: Last Vital Signs Temp 97.6 F 09/25/20 23:32 Pulse 92 09/26/20 06:40 Resp 20 09/26/20 06:30 BP 125/68 09/26/20 08:06 Pulse Ox 89 L 09/26/20 06:30 Weight - Most Recent: 108 lb 1.6 oz I&O - Last 24 Hours: Intake & Output 09/25/20 09/26/20 09/26/20 22:59 06:59 14:59 Intake Total 250 Output Total 900 600 Balance -900 -350 Lab Results Last 24 Hours: Laboratory Results - last 24 hr 09/26/20 09/26/20 Range/Units 06:20 06:20 WBC 29.9 H (3.0-10.3) x10-3/uL RBC 4.87 (3.60-5.20) x10(6)uL Hgb 14.7 (11.4-15.5) g/dL Hct 45.3 (34.2-48.2) % MCV 93.1 (76.7-100.5) fL MCH 30.1 (23.9-33.9) pg MCHC 32.3 (31.9-34.8) g/dL RDW 14.0 (12.3-16.5) % Plt Count 520 H (151-488) x10(3)uL MPV 8.1 (7.1-12.4) fL Add Manual Diff Yes Neutrophils % (Manual) 92 H (46-82) % Lymphocytes % (Manual) 6 L (13-37) % Monocytes % (Manual) 2 L (4-12) % Hypersegmented Neuts Many Sodium 146 H (135-145) mmol/L Potassium 4.5 (3.5-5.3) mmol/L Chloride 105 (100-110) mmol/L Carbon Dioxide 28 (21-32) mmol/L BUN 18 (7-18) mg/dL Creatinine 0.8 (0.55-1.02) mg/dL Est Cr Clr Drug Dosing 54.98 mL/min Estimated GFR (MDRD) > 60 (>60) BUN/Creatinine Ratio 22.5 H (9-20) Glucose 123 H (80-116) mg/dL Calcium 9.5 (8.6-10.2) mg/dL Joe Results Last 24 Hours: Microbiology 09/24/20 19:40 Aerobic Blood Culture - Preliminary Blood - Venous NO GROWTH AFTER 1 DAY Anaerobic Blood Culture - Preliminary NO GROWTH AFTER 1 DAY Med Orders - Current: Current Medications Acetaminophen (Tylenol) 650 mg PO Q4H PRN PRN Reason: Pain (Mild 1-3)/fever Albuterol/Ipratropium (Duoneb 3.0-0.5 Mg/3 Ml) 3 ml NEB QIDRT [facility] Last Admin: 09/26/20 06:30 Dose: 3 ml Documented by: Amlodipine Besylate (Norvasc) 10 mg PO DAILY [facility] Last Admin: 09/26/20 08:06 Dose: 10 mg Documented by: Ceftriaxone Sodium (Rocephin) 1 gm IVPUSH Q24H [facility] Last Admin: 09/25/20 22:10 Dose: 1 gm Documented by: Enoxaparin Sodium (Lovenox) 40 mg SUBCUT Q24H [facility] Last Admin: 09/25/20 21:40 Dose: 40 mg Documented by: Hydroxyzine HCl (Atarax) 25 mg PO Q6H PRN PRN Reason: Anxiety Azithromycin 500 mg/ Sodium (Chloride) 250 mls @ 250 mls/hr IV Q24H [facility] Last Admin: 09/25/20 22:15 Dose: 250 mls/hr Documented by: Methylprednisolone Sodium Succinate (Solu-Medrol) 40 mg IVPUSH Q12H [facility] Last Admin: 09/26/20 08:06 Dose: 40 mg Documented by: Multivitamins/Minerals/Vitamin C (Tab-A-Jennifer) 1 tab PO DAILY [facility] Last Admin: 09/26/20 08:07 Dose: 1 tab Documented by: Naproxen (Naprosyn) 500 mg PO BID [facility] Last Admin: 09/26/20 08:07 Dose: 500 mg Documented by: Apollo Levin *Pt (Own Med*) 1 puff INH DAILY [facility] Last Admin: 09/26/20 08:13 Dose: 1 puff Documented by: Pantoprazole Sodium (Protonix Iv) 40 mg IVPUSH Q12H [facility] Last Admin: 09/25/20 23:20 Dose: 40 mg Documented by: Simvastatin (Zocor) 80 mg PO BEDTIME [facility] Last Admin: 09/25/20 20:25 Dose: 80 mg Documented by: Sodium Chloride (Saline Flush) 10 ml FLUSH ASDIRECTED PRN PRN Reason: Keep Vein Open Last Admin: 09/26/20 08:07 Dose: 10 ml Documented by: Tramadol HCl (Ultram) 50 mg PO Q6H PRN PRN Reason: Pain Venlafaxine HCl (Effexor Xr) 150 mg PO DAILY [facility] Last Admin: 09/25/20 11:11 Dose: 150 mg Documented by: Discontinued Medications Albuterol/Ipratropium (Duoneb 3.0-0.5 Mg/3 Ml) 3 ml NEB ONETIME ONE Stop: 09/24/20 21:03 Last Admin: 09/24/20 21:23 Dose: 3 ml Documented by: Ceftriaxone Sodium (Rocephin) 1 gm IVPUSH ONETIME ONE Stop: 09/24/20 22:31 Last Admin: 09/24/20 23:00 Dose: 1 gm Documented by: Enoxaparin Sodium (Lovenox) 40 mg SUBCUT ONETIME ONE Stop: 09/24/20 23:31 Last Admin: 09/25/20 00:32 Dose: 40 mg Documented by: Hydromorphone HCl (Dilaudid) 0.5 mg IVPUSH ONETIME ONE Stop: 09/24/20 20:18 Last Admin: 09/24/20 20:29 Dose: 0.5 mg Documented by: Hydromorphone HCl (Dilaudid) 0.5 mg IVPUSH Q2H PRN PRN Reason: Pain (severe 7-10) Last Admin: 09/25/20 04:45 Dose: 0.5 mg Documented by: Sodium Chloride (Normal Saline) 1,000 mls @ 75 mls/hr IV ASDIRECTED BUSHRA Last Infusion: 09/25/20 00:04 Dose: 75 mls/hr Documented by: Azithromycin 500 mg/ Sodium (Chloride) 250 mls @ 250 mls/hr IV ONETIME ONE Stop: 09/24/20 23:29 Last Admin: 09/24/20 23:04 Dose: 250 mls/hr Documented by: Iopamidol (Isovue-370 (76%)) 100 ml IV . DIRECTED ONE Stop: 09/24/20 21:18 Last Admin: 09/24/20 22:08 Dose: 75 ml Documented by: Methylprednisolone Sodium Succinate (Solu-Medrol) 125 mg IVPUSH ONETIME ONE Stop: 09/24/20 20:18 Last Admin: 09/24/20 20:33 Dose: 125 mg Documented by: Ondansetron HCl (Zofran) 4 mg IVPUSH ONETIME ONE Stop: 09/24/20 20:18 Last Admin: 09/24/20 20:27 Dose: 4 mg Documented by: Ondansetron HCl (Zofran) 4 mg IV Q6H PRN PRN Reason: Nausea/Vomiting - Exam Quality Assessment: Supplemental Oxygen General: Alert, Oriented, Cooperative Neck: Supple Lungs: Decreased Breath Sounds (Moving a little bit more air. I do not hear a Rales or wheezing.) Cardiovascular: Regular Rate, Regular Rhythm. No: No Murmurs Extremities: No Pedal Edema Sepsis Event Note - Evaluation Sepsis Screening Result: Sepsis Risk - Focused Exam Vital Signs: Vital Signs Temp Pulse Resp BP BP Pulse Ox Pulse Ox 09/26/20 08:06 125/68 09/26/20 06:40 92 09/26/20 06:30 86 20 135/78 89 L 09/25/20 23:48 91 L 09/25/20 23:32 97.6 F 90 20 131/72 91 L 09/25/20 21:50 96 - Problem List & Annotations (1) Panic attack SNOMED Code(s): 555074705 Code(s): F41.0 - PANIC DISORDER [EPISODIC PAROXYSMAL ANXIETY] Status: Acute Current Visit: Yes (2) Depression with anxiety SNOMED Code(s): 156953870 Code(s): F41.8 - OTHER SPECIFIED ANXIETY DISORDERS Status: Acute Current Visit: Yes (3) Bilateral pneumonia SNOMED Code(s): 164233831 Code(s): J18.9 - PNEUMONIA, UNSPECIFIED ORGANISM Status: Acute Current Visit: Yes Qualifiers: Pneumonia type: due to unspecified organism Lung location: lower lobe of lung Qualified Code(s): J18.9 - Pneumonia, unspecified organism (4) COPD exacerbation SNOMED Code(s): 722787900 Code(s): J44.1 - CHRONIC OBSTRUCTIVE PULMONARY DISEASE W (ACUTE) EXACERBATION Status: Acute Current Visit: Yes (5) Respiratory failure with hypoxia SNOMED Code(s): 67066212389119815 Code(s): J96.91 - RESPIRATORY FAILURE, UNSPECIFIED WITH HYPOXIA Status: Acute Current Visit: Yes Qualifiers: Chronicity: acute Qualified Code(s): J96.01 - Acute respiratory failure with hypoxia (6) Palliative care status SNOMED Code(s): 706122154 Code(s): Z51.5 - ENCOUNTER FOR PALLIATIVE CARE Status: Acute Current Visit: Yes - Problem List Review Problem List Initiated/Reviewed/Updated: Yes - My Orders Last 24 Hours: My Active Orders 09/25/20 08:38 hydrOXYzine HCL [Atarax] 25 mg PO Q6H PRN Convert IV to Saline Lock [OM.PC] Routine 09/25/20 08:40 traMADol [Ultram] 50 mg PO Q6H PRN 09/25/20 09:00 Multivitamins [Tab-A-Jennifer] 1 tab PO DAILY Naproxen [Naprosyn] 500 mg PO BID Venlafaxine [Effexor XR] 150 mg PO DAILY amLODIPine [Norvasc] 10 mg PO DAILY 09/25/20 11:45 Fluticasone/Umeclidin/Vilanter [Trelegy Ellipta 100-62.5-25] 1 puff INH DAILY 09/25/20 21:00 Simvastatin [Zocor] 80 mg PO BEDTIME - Plan Plan:: 1. We had the patient walk down the tanner the test oxygen. She dropped to 74%. 2. Patient is adamant she wants to go home today. I think that's okay as long as her use home O2. We'll send her home on hydroxyzine, duo nebs, Levaquin. 3. She'll follow-up with her primary provider in one week.
--- NOTE | 2020-09-26 08:45 | PCM.DCSUM1 ---
Discharge Summary - Hospital Course Free Text/Narrative:: Hospital course-patient was admitted and had a CT scan that showed pneumonia. She also has severe COPD. Her COVID 19 test was negative. She was put on Rocephin and Zithromax and O2. Dual nebs were also used. Her white count was up to 29,000 but she been on steroids for 3 weeks. The rest her labs relatively are normal. After day of steroids i.e. Solu-Medrol and IV antibiotics patient felt much better. Her oxygen improved but she still needed oxygen. We did a walking desaturation test which she dropped to 74%. She was adamant about going home and even discussed signing him out AMA if she didn't discharge. I feel she is okay to go home on O2, Levaquin. Patient is been evident panic attacks when she looks at her home O2 monitor which she has. I told her not to look at it and if she does she can use hydroxyzine which I ordered and sent home with her. She has some pleuritic chest pain on the right side use Naprosyn 500 mg twice a day and that helped immensely. She'll get that [id number]. Brief History: This is a 65-year-old female patient has had several weeks of wheezing and shortness of breath. She has a history of COPD and she is a smoker. She's been on a tapering dose of steroids that she says is been going on for 3 weeks. She says it has helped. 2 days ago she started having right rib pain and more shortness of breath. She called the provider is taking care of her and she was instructed to go to the hospital. She did not go immediately because her cat was having surgery and she showed up yesterday. She was evaluated by the ER doc with a CT scan that showed bilateral pneumonia. Her coronavirus 19 test was negative. Patient states she has positive phlegm but it's not any different than normal. She says was a little bit colored with green and doesn't worry her. She denies fevers, chills, body aches. She does have fatigue. She is not able to walk as far she normally does per she denies any chest pain. The pain in her ribs is a right anterior axillary line below the breast. Diagnosis: Stroke: No - Discharge Data Discharge Date: 09/26/20 Discharge Disposition: Home, Self-Care 01 Condition: Good - Referral to Home Health Primary Care Physician: Ry Nava MD - Discharge Diagnosis/Problem(s) (1) Panic attack SNOMED Code(s): 704360674 ICD Code: F41.0 - PANIC DISORDER [EPISODIC PAROXYSMAL ANXIETY] Status: Acute Current Visit: Yes (2) Depression with anxiety SNOMED Code(s): 881536879 ICD Code: F41.8 - OTHER SPECIFIED ANXIETY DISORDERS Status: Acute Current Visit: Yes (3) Bilateral pneumonia SNOMED Code(s): 493007738 ICD Code: J18.9 - PNEUMONIA, UNSPECIFIED ORGANISM Status: Acute Current Visit: Yes Qualifiers: Pneumonia type: due to unspecified organism Lung location: lower lobe of lung Qualified Code(s): J18.9 - Pneumonia, unspecified organism (4) COPD exacerbation SNOMED Code(s): 150153183 ICD Code: J44.1 - CHRONIC OBSTRUCTIVE PULMONARY DISEASE W (ACUTE) EXACERBATION Status: Acute Current Visit: Yes (5) Respiratory failure with hypoxia SNOMED Code(s): 76047347376642066 ICD Code: J96.91 - RESPIRATORY FAILURE, UNSPECIFIED WITH HYPOXIA Status: Acute Current Visit: Yes Qualifiers: Chronicity: acute Qualified Code(s): J96.01 - Acute respiratory failure with hypoxia (6) Palliative care status SNOMED Code(s): 223384625 ICD Code: Z51.5 - ENCOUNTER FOR PALLIATIVE CARE Status: Acute Current Visit: Yes - Patient Instructions Diet: Regular Diet as Tolerated Activity: As Tolerated Driving: May Drive Today Showering/Bathing: May Shower Other/Special Instructions: 1. Recheck with Dr. Nava in 1 week. 2. Home O2 NC. - Discharge Plan Prescriptions/Med Rec: Albuterol/Ipratropium [DuoNeb 3.0-0.5 MG/3 ML] 3 ml NEB QIDRT #1 box hydrOXYzine HCL [hydrOXYzine] 25 mg PO Q6H PRN #30 tablet PRN Reason: Anxiety levoFLOXacin [Levaquin] 750 mg PO DAILY #7 tab predniSONE [Prednisone] See Taper PO DAILY #48 tab.ds.pk Home Medications: Home Meds Albuterol Sulfate [Albuterol Sulfate Hfa] 18 gm IH Q4H PRN 09/24/20 [History] Albuterol [Proventil Neb Soln] 2.5 mg .XX Q4H PRN 09/24/20 [History] Aspirin [Aspirin EC] 325 mg PO DAILY 09/24/20 [History] Fluticasone/Umeclidin/Vilanter [Trelegy Ellipta 100-62.5-25] 1 puff DAILY 1 [History] Multivitamin [Daily Multiple Vitamin] 1 each PO DAILY 09/24/20 [History] Simvastatin [Zocor] 80 mg PO BEDTIME 09/24/20 [History] Venlafaxine HCl [Venlafaxine ER] 150 mg DAILY 09/24/20 [History] amLODIPine Besylate [Norvasc] 10 mg PO DAILY 09/24/20 [History] Albuterol/Ipratropium [DuoNeb 3.0-0.5 MG/3 ML] 3 ml NEB QIDRT #1 box 09/26/20 [Rx] hydrOXYzine HCL [hydrOXYzine] 25 mg PO Q6H PRN #30 tablet 09/26/20 [Rx] levoFLOXacin [Levaquin] 750 mg PO DAILY #7 tab 09/26/20 [Rx] predniSONE [Prednisone] See Taper PO DAILY #48 tab.ds.pk 09/26/20 [Rx] Oxygen Therapy Mode: Nasal Cannula Maintain SPO2% less than: 94 Maintain SpO2% greater than: 88 Patient Handouts: Chronic Obstructive Pulmonary Disease Exacerbation, [id number], Pneumonitis, Smoking and Musculoskeletal Health, Fall Prevention in Hospitals, Adult, Venous Thromboembolism Prevention Forms: ED Department Discharge Referrals: Ry Nava MD [Primary Care Provider] - - Discharge Summary/Plan Comment DC Time >30 min.: No - Patient Data Vitals - Most Recent: Last Vital Signs Temp 97.6 F 09/25/20 23:32 Pulse 92 09/26/20 06:40 Resp 20 09/26/20 06:30 BP 125/68 09/26/20 08:06 Pulse Ox 89 L 09/26/20 06:30 Weight - Most Recent: 108 lb 1.6 oz I&O - Last 24 hours: Intake & Output 09/25/20 09/26/20 09/26/20 22:59 06:59 14:59 Intake Total 250 Output Total 900 600 Balance -900 -350 Lab Results - Last 24 hrs: Laboratory Results - last 24 hr 09/26/20 09/26/20 Range/Units 06:20 06:20 WBC 29.9 H (3.0-10.3) x10-3/uL RBC 4.87 (3.60-5.20) x10(6)uL Hgb 14.7 (11.4-15.5) g/dL Hct 45.3 (34.2-48.2) % MCV 93.1 (76.7-100.5) fL MCH 30.1 (23.9-33.9) pg MCHC 32.3 (31.9-34.8) g/dL RDW 14.0 (12.3-16.5) % Plt Count 520 H (151-488) x10(3)uL MPV 8.1 (7.1-12.4) fL Add Manual Diff Yes Neutrophils % (Manual) 92 H (46-82) % Lymphocytes % (Manual) 6 L (13-37) % Monocytes % (Manual) 2 L (4-12) % Hypersegmented Neuts Many Sodium 146 H (135-145) mmol/L Potassium 4.5 (3.5-5.3) mmol/L Chloride 105 (100-110) mmol/L Carbon Dioxide 28 (21-32) mmol/L BUN 18 (7-18) mg/dL Creatinine 0.8 (0.55-1.02) mg/dL Est Cr Clr Drug Dosing 54.98 mL/min Estimated GFR (MDRD) > 60 (>60) BUN/Creatinine Ratio 22.5 H (9-20) Glucose 123 H (80-116) mg/dL Calcium 9.5 (8.6-10.2) mg/dL MARLON Results - Last 24 hrs: Microbiology 09/24/20 19:40 Aerobic Blood Culture - Preliminary Blood - Venous NO GROWTH AFTER 1 DAY Anaerobic Blood Culture - Preliminary NO GROWTH AFTER 1 DAY Med Orders - Current: Current Medications Acetaminophen (Tylenol) 650 mg PO Q4H PRN PRN Reason: Pain (Mild 1-3)/fever Albuterol/Ipratropium (Duoneb 3.0-0.5 Mg/3 Ml) 3 ml NEB QIDRT [facility] Last Admin: 09/26/20 06:30 Dose: 3 ml Documented by: Amlodipine Besylate (Norvasc) 10 mg PO DAILY [facility] Last Admin: 09/26/20 08:06 Dose: 10 mg Documented by: Ceftriaxone Sodium (Rocephin) 1 gm IVPUSH Q24H [facility] Last Admin: 09/25/20 22:10 Dose: 1 gm Documented by: Enoxaparin Sodium (Lovenox) 40 mg SUBCUT Q24H [facility] Last Admin: 09/25/20 21:40 Dose: 40 mg Documented by: Hydroxyzine HCl (Atarax) 25 mg PO Q6H PRN PRN Reason: Anxiety Azithromycin 500 mg/ Sodium (Chloride) 250 mls @ 250 mls/hr IV Q24H [facility] Last Admin: 09/25/20 22:15 Dose: 250 mls/hr Documented by: Methylprednisolone Sodium Succinate (Solu-Medrol) 40 mg IVPUSH Q12H [facility] Last Admin: 09/26/20 08:06 Dose: 40 mg Documented by: Multivitamins/Minerals/Vitamin C (Tab-A-Jennifer) 1 tab PO DAILY [facility] Last Admin: 09/26/20 08:07 Dose: 1 tab Documented by: Naproxen (Naprosyn) 500 mg PO BID [facility] Last Admin: 09/26/20 08:07 Dose: 500 mg Documented by: Apollo Levin *Pt (Own Med*) 1 puff INH DAILY [facility] Last Admin: 09/26/20 08:13 Dose: 1 puff Documented by: Pantoprazole Sodium (Protonix Iv) 40 mg IVPUSH Q12H [facility] Last Admin: 09/25/20 23:20 Dose: 40 mg Documented by: Simvastatin (Zocor) 80 mg PO BEDTIME [facility] Last Admin: 09/25/20 20:25 Dose: 80 mg Documented by: Sodium Chloride (Saline Flush) 10 ml FLUSH ASDIRECTED PRN PRN Reason: Keep Vein Open Last Admin: 09/26/20 08:07 Dose: 10 ml Documented by: Tramadol HCl (Ultram) 50 mg PO Q6H PRN PRN Reason: Pain Venlafaxine HCl (Effexor Xr) 150 mg PO DAILY [facility] Last Admin: 09/25/20 11:11 Dose: 150 mg Documented by: Discontinued Medications Albuterol/Ipratropium (Duoneb 3.0-0.5 Mg/3 Ml) 3 ml NEB ONETIME ONE Stop: 09/24/20 21:03 Last Admin: 09/24/20 21:23 Dose: 3 ml Documented by: Ceftriaxone Sodium (Rocephin) 1 gm IVPUSH ONETIME ONE Stop: 09/24/20 22:31 Last Admin: 09/24/20 23:00 Dose: 1 gm Documented by: Enoxaparin Sodium (Lovenox) 40 mg SUBCUT ONETIME ONE Stop: 09/24/20 23:31 Last Admin: 09/25/20 00:32 Dose: 40 mg Documented by: Hydromorphone HCl (Dilaudid) 0.5 mg IVPUSH ONETIME ONE Stop: 09/24/20 20:18 Last Admin: 09/24/20 20:29 Dose: 0.5 mg Documented by: Hydromorphone HCl (Dilaudid) 0.5 mg IVPUSH Q2H PRN PRN Reason: Pain (severe 7-10) Last Admin: 09/25/20 04:45 Dose: 0.5 mg Documented by: Sodium Chloride (Normal Saline) 1,000 mls @ 75 mls/hr IV ASDIRECTED BUSHRA Last Infusion: 09/25/20 00:04 Dose: 75 mls/hr Documented by: Azithromycin 500 mg/ Sodium (Chloride) 250 mls @ 250 mls/hr IV ONETIME ONE Stop: 09/24/20 23:29 Last Admin: 09/24/20 23:04 Dose: 250 mls/hr Documented by: Iopamidol (Isovue-370 (76%)) 100 ml IV . DIRECTED ONE Stop: 09/24/20 21:18 Last Admin: 09/24/20 22:08 Dose: 75 ml Documented by: Methylprednisolone Sodium Succinate (Solu-Medrol) 125 mg IVPUSH ONETIME ONE Stop: 09/24/20 20:18 Last Admin: 09/24/20 20:33 Dose: 125 mg Documented by: Ondansetron HCl (Zofran) 4 mg IVPUSH ONETIME ONE Stop: 09/24/20 20:18 Last Admin: 09/24/20 20:27 Dose: 4 mg Documented by: Ondansetron HCl (Zofran) 4 mg IV Q6H PRN PRN Reason: Nausea/Vomiting
[2020-09-26] MEDS: Venlafaxine 150 MG Cap.ER PO SCH (09:33)
[2020-09-26] MEDS: Pantoprazole 40 MG Vial IVPUSH SCH (10:33)
--- NOTE | 2020-09-28 10:56 | CR ---
INDICATION: Dyspnea, chest pain. CHEST, ONE VIEW: AP portable upright view of the chest 09/24/20 compared with 10/23/09 revealed infiltration at both lung bases with probable mild pleuritis and possible areas of linear atelectasis with a much greater amount of infiltrate at the right lower lung field than on the left. The infiltrate extends into the mid lung perez especially on the right. Findings are compatible with pneumonia and pleuritis. The heart did not appear enlarged. The aorta is tortuous with calcification in the arch. Findings compatible with COPD are also noted. IMPRESSION: 1. Bilateral pneumonia and pleuritis right greater than left extending into the mid lung field especially on the right, etiology indeterminate but a viral pneumonia such as COVID-19 could be present. 2. COPD. 3. ASD aorta. MTDD
== END 2020-09-26 11:00 | disposition home or self-care (01) | DRG 193 ==
LOC: FB.ED 19:26 → FB.MS 23:28
PROVIDERS: ADMIT Emergency Medicine; ATTEND Family Medicine
DX: J18.9 Pneumonia, unspecified organism (principal); J96.01 Acute respiratory failure with hypoxia; J44.0 Chronic obstructive pulmonary disease with (acute) lower respiratory infection; J44.1 Chronic obstructive pulmonary disease with (acute) exacerbation; F41.8 Other specified anxiety disorders; F32.9 Major depressive disorder, single episode, unspecified; F41.9 Anxiety disorder, unspecified; Z51.5 Encounter for palliative care; F41.0 Panic disorder [episodic paroxysmal anxiety]; Z20.822 Contact with and (suspected) exposure to COVID-19; Z20.828 Contact with and (suspected) exposure to other viral communicable diseases; E78.00 Pure hypercholesterolemia, unspecified; I10 Essential (primary) hypertension; K21.9 Gastro-esophageal reflux disease without esophagitis; F17.210 Nicotine dependence, cigarettes, uncomplicated; M19.90 Unspecified osteoarthritis, unspecified site; Z90.49 Acquired absence of other specified parts of digestive tract; Z85.820 Personal history of malignant melanoma of skin; Z79.82 Long term (current) use of aspirin; Z79.899 Other long term (current) drug therapy; Z98.49 Cataract extraction status, unspecified eye
CPT/HCPCS: 36415; 71045; 71275; 80053; 83605; 83880; 84484; 85025; 85379; 85610; 85730; 86140; 87040; 93005; 94640; 96365; 96375; 99285; J0456; J0696; J1170; J2405; J2930; J7030; J7050; Q9967; U0002; 80048; 93010; 94760; 99222; 99238; A9270-GY; C9113; J1650; J2920; J7620-GY

== ENCOUNTER 2022-03-24 15:30 | Emergency (ER) | payer MEDICARE ==
[2022-03-24] MEDS ORDERED: predniSONE 20 MG Tab PO ONE (15:31)
[2022-03-24] MEDS ORDERED: Azithromycin 250 MG Tab PO ONE (15:31)
[2022-03-24] MEDS ORDERED: Sodium Chloride 0.9% 10 ML Syringe FLUSH PRN (15:51)
[2022-03-24] MEDS ORDERED: Albuterol/Ipratropium 3.0-0.5 MG/3 ML Neb Soln NEB ONE (15:58)
[2022-03-24] MEDS ORDERED: Dexamethasone 4 MG/ML SDV IVPUSH ONE (15:58)
[2022-03-24 16:12] LABS: BASE EXCESS VENOUS,POC 2 mmol/L (-2 - 3+); PCO2 VENOUS,POC 42 mmHg (41-51); PH VENOUS,POC 7.41 pH Units (7.32-7.43)
[2022-03-24 16:24] LABS: ESTIMATED GFR 80 mL/min (>60)
[2022-03-24 17:20] LABS: CORONAVIRUS COVID-19 NAA NEGATIVE (NEGATIVE)
[2022-03-24] MEDS ORDERED: Iopamidol 755 Mg/ML 75 ML Bottle IV ONE (17:45)
== END 2022-03-24 20:10 | disposition still patient (30) ==
LOC: FB.ED 15:30
DX: J44.1 Chronic obstructive pulmonary disease with (acute) exacerbation (principal); J18.9 Pneumonia, unspecified organism; E78.00 Pure hypercholesterolemia, unspecified; I10 Essential (primary) hypertension; F17.210 Nicotine dependence, cigarettes, uncomplicated; Z79.82 Long term (current) use of aspirin; Z79.899 Other long term (current) drug therapy; Z20.822 Contact with and (suspected) exposure to COVID-19
CPT/HCPCS: 0240U; 36415; 71045; 71275; 80053; 83605; 84484; 85025; 85379; 85610; 85730; 87070; 87205; 93005; 94640; 96374; 99285; A9270; J1100; J7512; Q9967; J7620

== ENCOUNTER 2022-07-31 17:29 | Observation (INO) | payer MEDICARE ==
[2022-07-31] MEDS ORDERED: Ketorolac 30 MG/ML SDV IM ONE (17:55)
[2022-07-31] MEDS ORDERED: Acetaminophen/oxyCODONE 325-5 MG Tab PO STA (17:56)
[2022-07-31] MEDS ORDERED: Lidocaine 4% 1 each Patch TOP STA (17:57)
[2022-07-31 19:14] LABS: ESTIMATED GFR 80 mL/min (>60)
[2022-07-31] MEDS ORDERED: cefTRIAXone 1 GM in Sodium Chloride 0.9% 50 ML IV ONE (19:29)
[2022-07-31] MEDS ORDERED: Levofloxacin/Dextrose 5%-Water 750 MG in Premix Bag 1 BAG IV ONE (19:35)
[2022-07-31] MEDS: Potassium Chloride 20 MEQ Tab.ER PO SCH (20:38)
[2022-07-31] MEDS ORDERED: Albuterol 8 GM Inhaler INH PRN (20:55)
[2022-07-31] MEDS ORDERED: Non-Formulary Medication 1 Each (Simvastatin [Zocor] 80 MG Tablet) PO SCH (21:00)
[2022-07-31] MEDS: Nicotine 14 MG/24 Hr Patch TRDERM SCH (21:17)
[2022-07-31] MEDS: ALPRAZolam 0.5 MG Tab PO PRN (21:56)
[2022-07-31] MEDS: Albuterol/Ipratropium 3.0-0.5 MG/3 ML Neb Soln NEB SCH (21:56)
[2022-07-31] MEDS: Acetaminophen/HYDROcodone 325-5 MG Tab PO PRN (21:57)
[2022-07-31] MEDS ORDERED: Simvastatin 40 MG Tab PO ONE (22:00)
[2022-07-31] MEDS: Sodium Chloride 0.9% 10 ML Syringe FLUSH PRN (22:04)
[2022-07-31] MEDS ORDERED: Lidocaine 4% 1 each Patch TOP PRN (22:17)
[2022-07-31] MEDS: BREZTRI AEROSPHERE INH SCH (23:24)
[2022-08-01] MEDS: Acetaminophen/HYDROcodone 325-5 MG Tab PO PRN ×3 (03:22→12:07)
[2022-08-01] MEDS: Albuterol/Ipratropium 3.0-0.5 MG/3 ML Neb Soln NEB SCH ×5 (04:53→20:37)
[2022-08-01] MEDS: ALPRAZolam 0.5 MG Tab PO PRN (07:46)
[2022-08-01] MEDS ORDERED: Albuterol 8 GM Inhaler INH PRN (09:00)
[2022-08-01] MEDS: Nicotine 14 MG/24 Hr Patch TRDERM SCH (09:16)
[2022-08-01] MEDS: BREZTRI AEROSPHERE INH SCH ×2 (09:17→20:39)
[2022-08-01] MEDS: Potassium Chloride 20 MEQ Tab.ER PO SCH (09:17)
[2022-08-01] MEDS: amLODIPine 10 MG Tab *PTOM PO SCH (09:17)
[2022-08-01] MEDS: Venlafaxine 150 MG Cap.ER *PTOM PO SCH (09:17)
[2022-08-01] MEDS ORDERED: ALPRAZolam 0.5 MG Tab PO PRN (10:00)
[2022-08-01 10:09] LABS: CORONAVIRUS COVID-19 NAA NEGATIVE (NEGATIVE)
[2022-08-01] MEDS ORDERED: Aspirin 325 MG Tab.EC PO SCH (12:00)
[2022-08-01] MEDS ORDERED: SIMVASTATIN 80 MG PO SCH (12:00)
[2022-08-01] MEDS ORDERED: Lidocaine 4% 1 each Patch TOP PRN ×2 (13:04→22:00)
[2022-08-01] MEDS: Sodium Chloride 0.9% 10 ML Syringe FLUSH PRN ×5 (15:26→23:30)
[2022-08-01] MEDS: methylPREDNISolone Sodium Succinate 125 MG/2 ML SDV IVPUSH SCH ×2 (15:26→23:24)
[2022-08-01] MEDS ORDERED: Levofloxacin/Dextrose 5%-Water 750 MG in Premix Bag 1 BAG IV SCH (20:00)
[2022-08-02] MEDS: Sodium Chloride 0.9% 10 ML Syringe FLUSH PRN ×2 (06:23→06:44)
[2022-08-02] MEDS: Albuterol/Ipratropium 3.0-0.5 MG/3 ML Neb Soln NEB SCH (06:23)
[2022-08-02] MEDS: methylPREDNISolone Sodium Succinate 125 MG/2 ML SDV IVPUSH SCH (06:24)
[2022-08-02 07:13] LABS: ESTIMATED GFR 70 mL/min (>60)
[2022-08-02] MEDS: BREZTRI AEROSPHERE INH SCH (08:56)
[2022-08-02] MEDS: Nicotine 14 MG/24 Hr Patch TRDERM SCH (08:57)
[2022-08-02] MEDS: Venlafaxine 150 MG Cap.ER *PTOM PO SCH (08:57)
[2022-08-02] MEDS: amLODIPine 10 MG Tab *PTOM PO SCH (09:00)
[2022-08-02] MEDS: Potassium Chloride 20 MEQ Tab.ER PO SCH (09:00)
== END 2022-08-02 09:40 | disposition home or self-care (01) ==
LOC: FB.ED 17:29 → UNDOADMOB 19:38 → FB.MS 19:38 → INTOOBSV 19:38 → FB.MS 08-01 08:50
PROVIDERS: ADMIT Emergency Medicine; ATTEND Family Medicine
DX: J18.9 Pneumonia, unspecified organism (principal); J44.1 Chronic obstructive pulmonary disease with (acute) exacerbation; E78.00 Pure hypercholesterolemia, unspecified; I10 Essential (primary) hypertension; F41.9 Anxiety disorder, unspecified; F32.A Depression, unspecified; F17.210 Nicotine dependence, cigarettes, uncomplicated; Z20.822 Contact with and (suspected) exposure to COVID-19; Z99.81 Dependence on supplemental oxygen; Z79.899 Other long term (current) drug therapy; Z79.82 Long term (current) use of aspirin; Z98.890 Other specified postprocedural states
CPT/HCPCS: 0241U; 36415; 71101-RT; 71250; 80048; 83605; 85025; 85027; 86140; 87040; 87070; 87205; 94640; A9270-GY; J1885; J1956; J2930; J3490; J7620

== ENCOUNTER 2023-01-27 09:44 | Emergency (ER) | payer MEDICARE ==
[2023-01-27] MEDS ORDERED: Sodium Chloride 0.9% 10 ML Syringe FLUSH PRN (09:53)
[2023-01-27] MEDS ORDERED: Morphine 4 MG/ML VIAL IVPUSH ONE (09:54)
[2023-01-27] MEDS ORDERED: Sodium Chloride 0.9% 1,000 ML IV SCH (10:00)
[2023-01-27 10:07] LABS: HEMATOCRIT 37.3 % (34.2-48.2); HEMOGLOBIN 12.1 g/dL (11.4-15.5); MEAN CORPUSCULAR HEMOGLOBIN 29.3 pg (23.9-33.9); MEAN CORPUSCULAR HGB CONC 32.5 g/dL (31.9-34.8); MEAN PLATELET VOLUME 7.5 fL (7.1-12.4); PLATELET COUNT,PLT 710 x10(3)uL (151-488); RED BLOOD CELL COUNT 4.14 x10(6)uL (3.60-5.20); RED CELL DISTRIBUTION WIDTH 15.4 % (12.3-16.5); WHITE BLOOD CELL COUNT,WBC 16.3 x10-3/uL (3.0-10.3)
[2023-01-27 10:13] LABS: BLOOD UREA NITROGEN,BUN 9 mg/dL (7-18); BUN/CREATININE RATIO 12.9 (9-20); CALCIUM 9.1 mg/dL (8.6-10.2); CARBON DIOXIDE,CO2 34 mmol/L (21-32); CHLORIDE,CL 103 mmol/L (100-110); CREATININE 0.7 mg/dL (0.55-1.02); EST CRCL DRUG DOSING (CG) 55.08 mL/min; ESTIMATED GFR 94 mL/min (>60); GLUCOSE RANDOM 115 mg/dL (80-116); POTASSIUM,K 3.5 mmol/L (3.5-5.3); SODIUM,NA 145 mmol/L (135-145)
[2023-01-27 10:20] LABS: INR 0.98 (1.00-1.24); PROTHROMBIN TIME 10.1 sec (9.0-11.1); PTT,PARTIAL THROMBOPLSTIN TIME 31.2 SECONDS (24.4-33.2)
[2023-01-27 10:21] LABS: A/G RATIO 0.6; ALANINE AMINOTRANSFERASE,ALT 14 U/L (12-36); ALBUMIN 2.7 g/dL (3.2-4.6); ALKALINE PHOSPHATASE 105 IU/L (56-112); AMYLASE 21 U/L (25-115); ASPARTATE AMNIOTRANSFERASE,AST 15 IU/L (5-25); BILIRUBIN TOTAL 0.1 mg/dL (0.1-1.3); PROTEIN TOTAL,TP 7.2 g/dL (6.0-8.0)
[2023-01-27 10:22] LABS: LACTIC ACID 1.3 mmol/L (0.4-2.0)
[2023-01-27 10:42] LABS: EOSINOPHILS PERCENT MAN 1 % (0-5); LYMPHOCYTES PERCENT MAN 10 % (13-37); MONOCYTES PERCENT MAN 4 % (4-12); SEG NEUTROPHILS PERCENT MAN 85 % (46-82)
[2023-01-27 11:26] LABS: BILIRUBIN,URINE NEGATIVE (NEGATIVE); GLUCOSE,URINE NORMAL (NORMAL); KETONES,URINE NEGATIVE (NEGATIVE); LEUKOCYTE ESTERASE,URINE SMALL (NEGATIVE); NITRITE,URINE NEGATIVE (NEGATIVE); OCCULT BLOOD,URINE NEGATIVE (NEGATIVE); PROTEIN,URINE 30 mg/dL (NEGATIVE); UROBILINOGEN,URINE NORMAL (NEGATIVE)
[2023-01-27 11:28] LABS: APPEARANCE,URINE SLIGHTLY CLOUDY (CLEAR); BACTERIA,URINE RARE (NS); COLOR,URINE YELLOW (YELLOW); HYALINE CASTS,URINE FEW (NS); RBC,URINE 0-5 (0-5); SQUAMOUS EPITHELIAL CELLS,UR FEW (NS,R,O); WBC,URINE 0-5 (0-5)
[2023-01-27] MEDS ORDERED: Iopamidol 755 Mg/ML 100 ML Bottle IV ONE (11:30)
[2023-01-27] MEDS ORDERED: Piperacillin/Tazobactam 4.5 GM in Sodium Chloride 0.9% 100 ML IV STA (11:40)
[2023-01-27] MEDS ORDERED: Ketorolac 30 MG/ML SDV IVPUSH ONE (12:32)
== END 2023-01-27 14:30 ==
LOC: FB.ED 09:44
DX: N20.0 Calculus of kidney (principal); K57.32 Diverticulitis of large intestine without perforation or abscess without bleeding; N39.0 Urinary tract infection, site not specified; I77.1 Stricture of artery; J44.9 Chronic obstructive pulmonary disease, unspecified; I10 Essential (primary) hypertension; Z79.82 Long term (current) use of aspirin; Z79.899 Other long term (current) drug therapy
CPT/HCPCS: 36415; 71045; 74177; 80053; 81001; 82150; 83605; 83690; 85025; 85610; 85730; 87015; 87116; 87206; 96361; 96365; 96375; 99285; 99285-25; J1885; J2270; J2543; J3490; J7030; Q9967